=== PATIENT | female | born 1995 | race Two or more races ===

== ENCOUNTER → 2016-11-04 | Outpatient (CLI) | payer BC ==
[2016-11-06 13:43] LABS: IMMUNOGLOBULIN A 379 mg/dL (87-352)
[2016-11-09 11:11] LABS: GLIADIN IGG AB 2 units (0-19)
== END | disposition home or self-care (01) ==
LOC: PAN 14:24
DX: R10.9 Unspecified abdominal pain (principal); R19.7 Diarrhea, unspecified
CPT/HCPCS: 36415; 82784; 83013; 83014; 83516; 83520; 86255

== ENCOUNTER 2016-12-25 08:03 | Day surgery (SDC) | payer BC ==
[2016-12-25] VITALS (9 sets, daily range): BP systolic 101–117; BP diastolic 54–77
[~2016-12-25] VITALS: Ht 157.5 cm; Wt 69.4 kg
[2016-12-25] MEDS ORDERED: NKM (08:46)
[2016-12-25 09:38] LABS: ALANINE AMINOTRANSFERASE 18 U/L (3-33); ALBUMIN/GLOBULIN RATIO 1.4 (1.0-2.7); ANION GAP 16 (5-15); ASPARTATE AMINO TRANSFERASE 21 U/L (5-40); CALCIUM 9.2 mg/dL (8.6-10.2); CARBON DIOXIDE 23 mEQ/L (20-30); CHLORIDE 94 mEQ/L (98-107); CREATININE 0.6 mg/dL (0.5-0.9); GLOMERULAR FILTRATION RATE > 60 mL/min (>60); HEMOLYSIS 7; POTASSIUM 3.5 mEQ/L (3.4-4.9); SODIUM 133 mEQ/L (135-145); TOTAL PROTEIN 7.5 g/dL (6.6-8.7)
[2016-12-25 09:39] LABS: LYMPHOCYTES % (AUTO) 30.2 % (20.0-45.0); MEAN CORPUSCULAR HEMOGLOBIN 30.7 PG (27.0-31.0); MEAN CORPUSCULAR HGB CONC 33.5 G/DL (32.0-36.0); MEAN CORPUSCULAR VOLUME 92 FL (80-99); MONOCYTES % (AUTO) 7.8 % (1.0-10.0); PLATELET COUNT 322 K/UL (150-450); RED BLOOD COUNT 4.42 M/UL (4.20-5.40); RED CELL DISTRIBUTION WIDTH 11.3 % (11.6-14.8); WHITE BLOOD COUNT 8.2 K/UL (4.8-10.8)
[2016-12-25] MEDS ORDERED: Propofol 10mg/ml 20ml IV ONE (10:00)
--- NOTE | 2016-12-25 10:11 | Pre-Procedure Note/Attestation ---
Pre-Procedure Note/Attestation Complete Prior to Procedure Planned Procedure: not applicable Procedure Narrative: egd/colon Indications for Procedure Pre-Operative Diagnosis: rectal bleed, abd pain Attestation I attest that I discussed the nature of the procedure; its benefits; risks and complications; and alternatives (and the risks and benefits of such alternatives ), prior to the procedure, with the patient (or the patient's legal veterans employment representative). I attest that, if there was a reasonable possibility of needing a blood transfusion, the patient (or the patient's legal veterans employment representative) was given the [facility] standardized written summary, pursuant to the Nish Yadira Blood Safety Act ([place] Health and Safety Code # 1645, as amended). I attest that I re-evaluated the patient just prior to the surgery and that there has been no change in the patient's H&P, except as documented below: KELLY ROLDAN December 25, 2016 10:11
--- NOTE | 2016-12-25 10:13 | Short Stay Surgery H&P ---
History of Present Illness History of Present Illness Chief Complaint rectal bleed, abd pain HPI Taj French is a 21 year old female who was admitted on for Abdominal Pain,Diarrhea Patient History Allergies: Coded Allergies: PENICILLINS (Verified Allergy, Severe, 12/25/16) PINEAPPLE (Verified Allergy, Intermediate, RASH , 12/25/16) PAST MEDICAL HISTORY: Past Surgeries: Social History: Medication History Scheduled No Known Medications* (NKM - No Known Medications*), 0 ., (Reported) Review of Systems Cardiovascular: Reports: no symptoms Respiratory: Reports: no symptoms Skeletal: Reports: no symptoms Gastrointestinal: Reports: gastro esophageal reflux disease Genitourinary: Reports: no symptoms Neurologic: Reports: no symptoms Endocrine: Reports: no symptoms Hematologic: Reports: no symptoms Physical Exam Vital Signs Last Vital Signs Date Time Temp Pulse Resp B/P Pulse Ox O2 Delivery O2 Flow Rate FiO2 12/25/16 08:41 98.9 64 18 110/54 98 Labs Laboratory Tests Test 12/25/16 08:30 12/25/16 08:54 Urine HCG, Qualitative Negative White Blood Count 8.2 K/UL (4.8-10.8) Red Blood Count 4.42 M/UL (4.20-5.40) Hemoglobin 13.6 G/DL (12.0-16.0) Hematocrit 40.5 % (37.0-47.0) Mean Corpuscular Volume 92 FL (80-99) Mean Corpuscular Hemoglobin 30.7 PG (27.0-31.0) Mean Corpuscular Hemoglobin Concent 33.5 G/DL (32.0-36.0) Red Cell Distribution Width 11.3 % (11.6-14.8) L Platelet Count 322 K/UL (150-450) Mean Platelet Volume 7.0 FL (6.5-10.1) Neutrophils (%) (Auto) 59.0 % (45.0-75.0) Lymphocytes (%) (Auto) 30.2 % (20.0-45.0) Monocytes (%) (Auto) 7.8 % (1.0-10.0) Eosinophils (%) (Auto) 2.0 % (0.0-3.0) Basophils (%) (Auto) 1.0 % (0.0-2.0) Sodium Level 133 mEQ/L (135-145) L Potassium Level 3.5 mEQ/L (3.4-4.9) Chloride Level 94 mEQ/L (98-107) L Carbon Dioxide Level 23 mEQ/L (20-30) Anion Gap 16 (5-15) H Blood Urea Nitrogen 8 mg/dL (7-23) Creatinine 0.6 mg/dL (0.5-0.9) Estimat Glomerular Filtration Rate > 60 mL/min (>60) Glucose Level 79 mg/dL (74-106) Calcium Level 9.2 mg/dL (8.6-10.2) Total Bilirubin 0.5 mg/dL (0.0-1.2) Aspartate Amino Transf (AST/SGOT) 21 U/L (5-40) Alanine Aminotransferase (ALT/SGPT) 18 U/L (3-33) Alkaline Phosphatase 64 U/L (35-104) Total Protein 7.5 g/dL (6.6-8.7) Albumin 4.4 g/dL (3.5-5.2) Globulin 3.1 g/dL Albumin/Globulin Ratio 1.4 (1.0-2.7) Thyroid Stimulating Hormone (TSH) 2.460 uIU/mL (0.300-4.500) Free Thyroxine 1.36 ng/dL (0.86-1.85) Skin: normal HENT: normal Heart: normal Lungs: normal Abdomen: normal Extremities: normal Plan Plan of Care egd/colon Final Diagnosis: Attestation Are the patient's medical conditions optimized for surgery? Attestation Response: yes KELLY ROLDAN December 25, 2016 10:13
--- NOTE | 2016-12-25 10:43 | Anethesia Preoperative Eval ---
Anesthesia Pre-op PMH/ROS General Date of Evaluation: December 25, 2016 Time of Evaluation: 10:16 Anesthesiologist: sofi ASA Score: ASA 2 Mallampati Score Class I : Soft palate, uvula, fauces, pillars visible Class II: Soft palate, uvula, fauces visible Class III: Soft palate, base of uvula visible Class IV: Only hard plate visible Mallampati Classification: Class II Surgeon: varun Diagnosis: abdominal pain, rectal bleeding Surgical Procedure: egd/colonoscopy Anesthesia History: none Allergies: Coded Allergies: PENICILLINS (Verified Allergy, Severe, 12/25/16) PINEAPPLE (Verified Allergy, Intermediate, RASH , 12/25/16) Past Medical History Pulmonary: Reports: asthma Hematology/Immune: Reports: anemia Anesthesia Pre-op Phys. Exam Physician Exam Last Vital Signs Date Time Temp Pulse Resp B/P Pulse Ox O2 Delivery O2 Flow Rate FiO2 12/25/16 08:41 98.9 64 18 110/54 98 Airway Exam Mallampati Score: Class II Teeth: intact Anesthesia Pre-op A/P Labs Hematology Test 12/25/16 08:54 White Blood Count 8.2 K/UL (4.8-10.8) Red Blood Count 4.42 M/UL (4.20-5.40) Hemoglobin 13.6 G/DL (12.0-16.0) Hematocrit 40.5 % (37.0-47.0) Mean Corpuscular Volume 92 FL (80-99) Mean Corpuscular Hemoglobin 30.7 PG (27.0-31.0) Mean Corpuscular Hemoglobin Concent 33.5 G/DL (32.0-36.0) Red Cell Distribution Width 11.3 % (11.6-14.8) L Platelet Count 322 K/UL (150-450) Mean Platelet Volume 7.0 FL (6.5-10.1) Neutrophils (%) (Auto) 59.0 % (45.0-75.0) Lymphocytes (%) (Auto) 30.2 % (20.0-45.0) Monocytes (%) (Auto) 7.8 % (1.0-10.0) Eosinophils (%) (Auto) 2.0 % (0.0-3.0) Basophils (%) (Auto) 1.0 % (0.0-2.0) Chemistry Test 12/25/16 08:54 Sodium Level 133 mEQ/L (135-145) L Potassium Level 3.5 mEQ/L (3.4-4.9) Chloride Level 94 mEQ/L (98-107) L Carbon Dioxide Level 23 mEQ/L (20-30) Anion Gap 16 (5-15) H Blood Urea Nitrogen 8 mg/dL (7-23) Creatinine 0.6 mg/dL (0.5-0.9) Estimat Glomerular Filtration Rate > 60 mL/min (>60) Glucose Level 79 mg/dL (74-106) Calcium Level 9.2 mg/dL (8.6-10.2) Total Bilirubin 0.5 mg/dL (0.0-1.2) Aspartate Amino Transf (AST/SGOT) 21 U/L (5-40) Alanine Aminotransferase (ALT/SGPT) 18 U/L (3-33) Alkaline Phosphatase 64 U/L (35-104) Total Protein 7.5 g/dL (6.6-8.7) Albumin 4.4 g/dL (3.5-5.2) Globulin 3.1 g/dL Albumin/Globulin Ratio 1.4 (1.0-2.7) Thyroid Stimulating Hormone (TSH) 2.460 uIU/mL (0.300-4.500) Free Thyroxine 1.36 ng/dL (0.86-1.85) Urine Test Test 12/25/16 08:30 Urine HCG, Qualitative Negative Risk Assessment & Plan Plan: propofol Status Change Before Surgery: Jovany Garcia MD December 25, 2016 10:43
--- NOTE | 2016-12-25 10:43 | Immediate Post-Op Evaluation ---
Immediate Post-Op Evalulation Immediate Post-Op Evalulation Date of Evaluation: December 25, 2016 Time of Evaluation: 11:01 IV Fluids: 600 Blood Pressure Systolic: 101 Blood Pressure Diastolic: 61 Pulse Rate: 67 Respiratory Rate: 28 O2 Sat by Pulse Oximetry: 100 Temperature (Fahrenheit): 99 Pain Score (1-10): 0 Nausea: No Vomiting: No Complications none Patient Status: awake, patent, none Hydration Status: adequate Jovany Teague MD December 25, 2016 10:43
--- NOTE | 2016-12-25 10:44 | 48 Hour Post Anesthesia Eval ---
Post Anesthesia Evaluation Date of Evaluation: December 25, 2016 Time of Evaluation: 12:00 Blood Pressure Systolic: 117 0: 71 Pulse Rate: 63 Respiratory Rate: 18 Temperature (Fahrenheit): 98.2 O2 Sat by Pulse Oximetry: 99 Airway: patent Nausea: No Vomiting: No Pain Intensity: 0 Hydration Status: adequate Cardiopulmonary Status: stable Mental Status/LOC: patient returned to baseline Follow-up Care/Observations: n/a Post-Anesthesia Complications: tolerated well Follow-up care needed: ready to discharge Jovany Teague MD December 25, 2016 10:44
--- NOTE | 2016-12-25 10:50 | Endoscopy Procedure Note ---
Endoscopy Procedure Note Indication for Procedure: rectal bleed, abd pain Procedures Performed: EGD, colonoscopy Operative Findings/Diagnosis: gastritis, hemorrhois Specimen: yes Pt Tolerated Procedure Well: Yes Estimated Blood Loss: none Anesthesiologist: sofi Anesthesia: MAC Implant(s) used?: No 50 yrs or older w/o bx or poly: No 10yrs. F/U not recommended: Yes If not recommended, why?: Above average risk 10 yrs. F/U needed: Yes 18 years or older w/prev. colo: No KELLY ROLDAN December 25, 2016 10:50
--- NOTE | 2016-12-25 19:46 | Procedure Note ---
DATE OF PROCEDURE: 12/25/2016 SURGEON: Leonidas Montgomery M.D. PROCEDURE: Upper endoscopy with biopsy and colonoscopy with biopsy. ANESTHESIOLOGIST: Jovany Teague M.D. INSTRUMENT: Olympus adult flexible upper endoscope and colonoscope. INDICATION: 1. Abdominal pain. 2. Rectal bleeding. REASON FOR PROCEDURE: The procedure, risks, benefits, and possible consequences, including hemorrhage, aspiration, perforation and infection, and alternative treatments, were explained to the patient/legal guardian by Dr. Leonidas Montgomery and the patient/legal guardian understood and accepted these risks. DESCRIPTION OF PROCEDURE: After informed consent was obtained and the patient was adequately sedated, Olympus upper endoscope was advanced from the mouth into the second portion of duodenum and retroflexion was performed in the stomach. The patient had diffuse gastritis, otherwise, normal upper endoscopic examination. Random biopsy from antrum of the stomach was obtained to rule out H. pylori infection. At this time, the upper endoscope was retrieved and the patient was turned over for colonoscopy. First, a rectal exam was performed, which was normal. Then, the scope was advanced from the rectum into the cecum documented by appendiceal orifice, ileocecal valve, and right upper quadrant palpation. Quality of prep was very good. The patient had normal-looking colonic mucosa. There was minimum inflammatory changes in the rectosigmoid area, which was biopsied. Retroflexion of rectum showed evidence of internal hemorrhoids. SUMMARY OF FINDINGS: 1. Gastritis, status post biopsy. 2. Minimum inflammatory changes in the left colon, which was biopsied. 3. Internal hemorrhoids. RECOMMENDATIONS: Follow up biopsies and treat accordingly. Leonidas Montgomery M.D. DR: LAUREN JOB#: [id number] CC:
== END 2016-12-25 12:10 | disposition home or self-care (01) ==
LOC: GAS 08:03
DX: K29.50 Unspecified chronic gastritis without bleeding (principal); K62.5 Hemorrhage of anus and rectum; K64.8 Other hemorrhoids; K21.9 Gastro-esophageal reflux disease without esophagitis; J45.909 Unspecified asthma, uncomplicated; D64.9 Anemia, unspecified; Z88.0 Allergy status to penicillin; Z91.018 Allergy to other foods
CPT/HCPCS: 36415; 43239; 45380; 80053; 81025; 84439; 84443; 85025; J2704; 94003; 94150